=== PATIENT | male | born 1955 | race Caucasian/White ===

== ENCOUNTER → 2019-09-23 | Outpatient (CLI) | payer MEDICARE | LOC: NC 14:12 | PROVIDERS: ATTEND Family Medicine | DX: I25.10 Atherosclerotic heart disease of native coronary artery without angina pectoris (principal); Z51.81 Encounter for therapeutic drug level monitoring ==

== ENCOUNTER → 2020-07-23 | Outpatient (CLI) | payer MEDICARE | LOC: GT 16:57 | PROVIDERS: ATTEND Internal Medicine | DX: U07.1 COVID-19 (principal); R09.02 Hypoxemia; R71.8 Other abnormality of red blood cells; Z79.01 Long term (current) use of anticoagulants; Z79.899 Other long term (current) drug therapy ==

== ENCOUNTER 2020-07-24 11:01 | Emergency (ER) | payer MEDICAID, MEDICARE ==
--- NOTE | 2020-07-24 11:45 | RAD ---
EXAM DESCRIPTION: Chest x-ray,1 View CLINICAL HISTORY: 65 years Male, covid COMPARISON: None. TECHNIQUE: AP portable chest. FINDINGS: Heart size is prominent with normal pulmonary vascularity. Sternotomy wires are present. Surgical clips in the right axilla. Hiatal hernia behind the heart. Minimal hazy increased density in the periphery of the mid and lower lung zones on the right may indicate mild infiltrate of pneumonia. Follow-up recommended to ensure clearance. No pulmonary mass or worrisome nodule. No pneumothorax or pleural effusion. Bones are unremarkable. IMPRESSION: Mild peripheral right pulmonary infiltrate. Electronically signed by: Teodoro Boston MD 07/24/2020 11:44 AM [employer]
[2020-07-24] MEDS ORDERED: APIXABAN 5 MG TAB PO ONE (14:13)
--- NOTE | 2020-07-24 14:16 | ED.PDOC ---
History of Present Illness - General Chief Complaint: General Stated Complaint: "I'm here for a blood draw" Time Seen by Provider: 07/24/20 11:08 Source: patient Exam Limitations: no limitations - History of Present Illness Initial Comments: The patient is a 65-year-old male presents emergency room secondary to being found coronavirus positive at the intermediate. The patient is saturating between 95 and 98% on room air. No increased work of breathing. He did have a mild runny nose yesterday. No chest pain. No rash. No nausea vomiting or diarrhea. He did have blood work yesterday and it did show some mild elevation of inflammatory markers. He is already taking Coumadin. He is already on Levaquin. He is already on low-dose prednisone. He was diagnosed with coronavirus yesterday. Timing/Duration: unsure Severity: mild Improving Factors: nothing Worsening Factors: nothing Associated Symptoms: denies symptoms Allergies/Adverse Reactions: Allergies Cephalexin [From Keflex] Allergy (Verified 07/24/20 11:13) Chicken Allergy Allergy (Verified 07/24/20 11:34) Pork Allergy Allergy (Verified 07/24/20 11:34) Home Medications: Ambulatory Orders Acetaminophen [Tylenol] 500 mg PO DAILY 07/24/20 Apixaban [Eliquis] 5 mg PO BID #30 tab 07/24/20 Benztropine Mesylate 1 mg PO DAILY 07/24/20 Desvenlafaxine [Desvenlafaxine ER] 50 mg PO DAILY 07/24/20 Digoxin [Digox] 125 mcg PO DAILY 07/24/20 Donepezil HCl [Aricept] 5 mg PO DAILY 07/24/20 Famotidine 40 mg PO DAILY 07/24/20 Melatonin 10 mg PO DAILY 07/24/20 Olanzapine 15 mg PO DAILY 07/24/20 Pravastatin Sodium 40 mg PO DAILY 07/24/20 Prednisone 10 mg PO DAILY 07/24/20 Ropinirole Hydrochloride [Ropinirole HCl] 1 mg PO DAILY 07/24/20 Warfarin Sodium 3 mg PO DAILY 07/24/20 levoFLOXacin [Levaquin] 500 mg PO DAILY 07/24/20 Review of Systems - Review of Systems Constitutional: States: no symptoms reported EENTM: States: nose congestion Respiratory: States: no symptoms reported Cardiology: States: no symptoms reported Gastrointestinal/Abdominal: States: no symptoms reported Genitourinary: States: no symptoms reported Musculoskeletal: States: no symptoms reported Skin: States: no symptoms reported Neurological: States: no symptoms reported Endocrine: States: no symptoms reported Hematologic/Lymphatic: States: no symptoms reported All other Systems: No Change from Baseline Past Medical History (General) - Patient Medical History Hx Cardiac Disorders: Yes Hx Gastroesophageal Reflux: Yes - Vaccination History Hx Tetanus, Diphtheria Vaccination: Yes Hx Influenza Vaccination: Yes Hx Pneumococcal Vaccination: Yes - Social History Hx Tobacco Use: No Hx Alcohol Use: No Hx Substance Use: No Hx Substance Use Treatment: No Hx Depression: No - Activities of Daily Living Senior Care/Assisted Living (if applicable):: [facility] - Female History Patient is a Female of Child Bearing Age (10 -59 yrs old): No Family Medical History - Family History Mother Family History: Unknown Living Status: Unknown Physical Exam - Physical Exam General Appearance: Alert, Comfortable, No apparent distress Eye Exam: bilateral normal Ears, Nose, Throat: hearing grossly normal, normal pharynx, nasal congestion Neck: full range of motion, supple Respiratory: lungs clear, normal breath sounds, no respiratory distress, no accessory muscle use Cardiovascular/Chest: normal peripheral pulses, regular rate, rhythm - Regular rate, no edema, other Peripheral Pulses: radial,right: 2+, radial,left: 2+ Gastrointestinal/Abdominal: non tender, soft Rectal Exam: deferred Back Exam: no CVA tenderness, no vertebral tenderness Extremity: normal range of motion, non-tender, normal inspection, normal capillary refill Neurologic: guinea pig breeder II-XII nml as tested, alert, normal mood/affect Skin Exam: normal color Comments: Vital Signs - 24 hr 07/24/20 07/24/20 07/24/20 11:10 11:13 12:00 Temperature 98.5 F Pulse Rate [ 90 90 73 Left Radial] Respiratory 18 18 18 Rate Blood Pressure 110/75 124/75 [Left Arm] O2 Sat by Pulse 96 96 Oximetry Progress - Progress Progress: 07/24/20 14:16 Patient is a 65-year-old male presented emergency room from the intermediate secondary to being coronavirus positive. Repeat laboratory work here today is consistent with laboratory work from yesterday. There is a mild infiltrate in the right midlung likely due to coronavirus however the patient is not hypoxic and not in any respiratory distress. He has already been started on oral prednisone and Levaquin. Due to his subtherapeutic INR I am going to switch the patient to Eliquis for the next 2 weeks. He was given a 10 mg dose here today. He will need to be started on a routine dose tomorrow. He will be on 5 mg twice a day for that. Coumadin is too unpredictable to be used with the Levaquin anyway. The patient appears to largely be at his baseline at this point. Obviously the course of coronavirus can be unpredictable and elderly patients with other medical problems. If he is worsening in any significant way then he may need reevaluation. ER warnings are given. clyde torres [phone] - Results/Orders Results/Orders: Infiltrate. Chest x-ray shows mild right mid to lateral lung infiltrate laboratory Tests 07/24/20 07/24/20 07/24/20 11:30 11:30 11:30 WBC 4.5 L RBC 3.90 L Hgb 10.2 L Hct 30.9 L MCV 79.4 L MCH 26.2 L MCHC 33.0 RDW 21.5 H Plt Count 171 MPV 6.8 L Absolute Neuts (auto) 3.60 Absolute Lymphs (auto) 0.50 L Absolute Monos (auto) 0.40 Absolute Eos (auto) 0.00 Absolute Basos (auto) 0.00 Neutrophils % 80.1 H Lymphocytes % 11.0 L Monocytes % 8.5 Eosinophils % 0.1 L Basophils % 0.3 PT 11.4 H INR 1.15 PTT (SP) 29.1 Fibrinogen 418 H D-Dimer, Quantitative 649.0 H* Sodium 134 L Potassium 3.6 Chloride 99 L Carbon Dioxide 24 Anion Gap 14.6 BUN 20 H Creatinine 1.18 BUN/Creatinine Ratio 16.9 Random Glucose 102 Serum Osmolality 271.0 L Calcium 8.5 Ferritin Total Bilirubin 0.6 AST 16 ALT 12 Alkaline Phosphatase 76 Creatine Kinase 77 CK-MB (CK-2) 0.8 CK-MB (CK-2) % Not Reportable Troponin I < 0.02 B-Natriuretic Peptide 62.8 Serum Total Protein 7.9 Albumin 3.9 Globulin 4.0 H Albumin/Globulin Ratio 1.0 L Urine Color Urine Appearance Urine pH Ur Specific [place] Urine Protein Urine Glucose (UA) Urine Ketones Urine Blood Urine Nitrite Urine Bilirubin Urine Urobilinogen Ur Leukocyte Esterase Urine RBC Urine WBC Ur Epithelial Cells Amorphous Sediment Urine Bacteria 07/24/20 07/24/20 11:30 13:18 WBC RBC Hgb Hct MCV MCH MCHC RDW Plt Count MPV Absolute Neuts (auto) Absolute Lymphs (auto) Absolute Monos (auto) Absolute Eos (auto) Absolute Basos (auto) Neutrophils % Lymphocytes % Monocytes % Eosinophils % Basophils % PT INR PTT (SP) Fibrinogen D-Dimer, Quantitative Sodium Potassium Chloride Carbon Dioxide Anion Gap BUN Creatinine BUN/Creatinine Ratio Random Glucose Serum Osmolality Calcium Ferritin 28.0 Total Bilirubin AST ALT Alkaline Phosphatase Creatine Kinase CK-MB (CK-2) CK-MB (CK-2) % Troponin I B-Natriuretic Peptide Serum Total Protein Albumin Globulin Albumin/Globulin Ratio Urine Color Yellow Urine Appearance Clear Urine pH 6.0 Ur Specific [place] 1.015 Urine Protein Negative Urine Glucose (UA) Negative Urine Ketones Negative Urine Blood Negative Urine Nitrite Negative Urine Bilirubin Negative Urine Urobilinogen 0.2 Ur Leukocyte Esterase Negative Urine RBC 0 Urine WBC 1-3 Ur Epithelial Cells 0-1 Amorphous Sediment Trace Urine Bacteria Rare Departure - Departure Clinical Impression: Coronavirus infection Disposition: Discharge to SNF Condition: Fair Departure Forms: ED Discharge - Pt. Copy, Patient Portal Self Enrollment Diet: regular diet Activity: increase activity as tolerated Referrals: MARTHA BRINK [Primary Care Provider] - 1-2 Weeks Prescriptions: Apixaban [Eliquis] 5 mg PO BID #30 tab Home Medications: Ambulatory Orders Acetaminophen [Tylenol] 500 mg PO DAILY 07/24/20 Apixaban [Eliquis] 5 mg PO BID #30 tab 07/24/20 Benztropine Mesylate 1 mg PO DAILY 07/24/20 Desvenlafaxine [Desvenlafaxine ER] 50 mg PO DAILY 07/24/20 Digoxin [Digox] 125 mcg PO DAILY 07/24/20 Donepezil HCl [Aricept] 5 mg PO DAILY 07/24/20 Famotidine 40 mg PO DAILY 07/24/20 Melatonin 10 mg PO DAILY 07/24/20 Olanzapine 15 mg PO DAILY 07/24/20 Pravastatin Sodium 40 mg PO DAILY 07/24/20 Prednisone 10 mg PO DAILY 07/24/20 Ropinirole Hydrochloride [Ropinirole HCl] 1 mg PO DAILY 07/24/20 Warfarin Sodium 3 mg PO DAILY 07/24/20 levoFLOXacin [Levaquin] 500 mg PO DAILY 07/24/20 Additional Instructions: Patient is a 65-year-old male presented emergency room from the intermediate secondary to being coronavirus positive. Repeat laboratory work here today is consistent with laboratory work from yesterday. There is a mild infiltrate in the right midlung likely due to coronavirus however the patient is not hypoxic and not in any respiratory distress. He has already been started on oral prednisone and Levaquin. Due to his subtherapeutic INR I am going to switch the patient to Eliquis for the next 2 weeks. He was given a 10 mg dose here today. He will need to be started on a routine dose tomorrow. He will be on 5 mg twice a day for that. Coumadin is too unpredictable to be used with the Levaquin anyway. It will be discontinued until he completes the course of Levaquin. The patient appears to largely be at his baseline at this point. Obviously the course of coronavirus can be unpredictable and elderly patients with other medical problems. If he is worsening in any significant way then he may need reevaluation. ER warnings are given.
[2020-07-24 14:45] VITALS: TEMP 97.8; O2SAT 97
[2020-07-24 14:50] VITALS: BP 138/88
[2020-07-27] MEDS ORDERED: ACETAMINOPHEN IV 1000MG 100 ML ONE (09:39)
[2020-07-27] MEDS ORDERED: DEXAMETHASONE INJ 10 MG/ML VIAL ONE (12:57)
== END 2020-07-24 14:47 ==
LOC: ER 11:01
DX: U07.1 COVID-19 (principal); K21.9 Gastro-esophageal reflux disease without esophagitis; I51.9 Heart disease, unspecified; Z79.899 Other long term (current) drug therapy; Z79.01 Long term (current) use of anticoagulants; Z88.1 Allergy status to other antibiotic agents

== ENCOUNTER 2020-07-27 09:03 | Inpatient (IN) | payer MEDICARE ==
[2020-07-27] MEDS ORDERED: SODIUM CHLORIDE 0.9% 1000ML 1,000 ML IVS ONE ×2 (09:22→10:18)
--- NOTE | 2020-07-27 09:26 | ED.PDOC ---
History of Present Illness - General Chief Complaint: Respiratory Problem Stated Complaint: resp distress, rapid hr Time Seen by Provider: 07/27/20 09:05 Source: RN notes reviewed, Vital Signs reviewed, EMS notes reviewed, group home records, old records Exam Limitations: other - dementia - History of Present Illness Initial Comments: 65 yo male comes in from group home with elevated HR, He was recently dx with covid 4 days ago. reported sob, and hypoxia. does not wear oxygen at home in group home. Allergies/Adverse Reactions: Allergies Cephalexin [From Keflex] Allergy (Verified 07/24/20 11:13) Chicken Allergy Allergy (Verified 07/24/20 11:34) Pork Allergy Allergy (Verified 07/24/20 11:34) Home Medications: Ambulatory Orders Acetaminophen [Tylenol] 500 mg PO Q4H PRN 07/24/20 Benztropine Mesylate 1 mg PO BID 07/24/20 Desvenlafaxine [Desvenlafaxine ER] 50 mg PO DAILY 07/24/20 Digoxin [Digox] 125 mcg PO DAILY 07/24/20 Donepezil HCl [Aricept] 5 mg PO DAILY 07/24/20 Famotidine 40 mg PO BID 07/24/20 Melatonin 10 mg PO BEDTIME 07/24/20 Olanzapine 15 mg PO BEDTIME 07/24/20 Pravastatin Sodium 40 mg PO BEDTIME 07/24/20 Prednisone 10 mg PO DAILY 07/24/20 Ropinirole Hydrochloride [Ropinirole HCl] 1 mg PO BID 07/24/20 levoFLOXacin [Levaquin] 500 mg PO DAILY 07/24/20 Apixaban [Eliquis] 5 mg PO BID 07/27/20 Review of Systems - Review of Systems Unable to Obtain Due To: dementia Past Medical History (General) - Patient Medical History Hx Dementia: Yes Hx of COPD: No - prosethetic heart valve? Hx Cardiac Disorders: Yes Hx Pacemaker: No Hx Gastroesophageal Reflux: Yes Hx Renal Disease: No Hx Cancer: No Hx of HIV: No Hx Hepatitis B: No Hx Hepatitis C: No Hx MRSA: No Surgical History: cholecystectomy - Vaccination History Hx Tetanus, Diphtheria Vaccination: Yes Hx Influenza Vaccination: Yes Hx Pneumococcal Vaccination: Yes - Social History Hx Tobacco Use: No Hx Alcohol Use: No Hx Substance Use: No Hx Substance Use Treatment: No Hx Depression: No Family Medical History - Family History Mother Family History: Unknown Living Status: Unknown Physical Exam - Physical Exam General Appearance: Alert, Anxious, Unkempt, Well Developed Eyes, Ears, Nose, Throat Exam: PERRL/EOMI, normal ENT inspection Neck: non-tender, full range of motion, supple, normal inspection Respiratory: chest non-tender, lungs clear, normal breath sounds, no respiratory distress, no accessory muscle use Cardiovascular/Chest: normal peripheral pulses, no edema, no gallop, no JVD, no murmur, bradycardia Peripheral Pulses: radial,right: 2+, radial,left: 2+ Gastrointestinal/Abdominal: normal bowel sounds, non tender, soft Rectal Exam: deferred Extremity: normal range of motion, non-tender, normal inspection, no pedal edema, no calf tenderness, normal capillary refill Neurologic: alert, other - baseline mental status, confused, oriented to self Skin Exam: normal color, warm/dry Progress - Progress Progress: 07/27/20 12:16 After 2 L NS bolus, HR decrease to 97, Saturating 94% on RA. patient got dexmaethasone, IV tylenol, 2 L ns bolus, remdisivir, levaquin. 07/27/20 13:07 HR 89, 98% on 2 L. Pending admission. The data reviewed when caring for this patient included: nurse notes, prior records, etc. The history and assessments from nurses notes were reviewed and considered, and the patient's home medication list was also reviewed and considered. My assessment and the results of testing completed here in the ED were discussed with the patient. All questions were answered. VSS patient admitted to the floor in stable condition. Daysi Campo DO #[id number] 07/27/20 13:09 - Results/Orders Results/Orders: 07/27/20 09:17 Isolation:Airborne ONCE 07/27/20 09:18 URINALYSIS Stat 07/27/20 09:30 EKG STAT Pulse Ox, Continuous Monitoring STAT 07/27/20 09:40 BLOOD CULTURE Stat 07/27/20 10:00 Remdesivir 200 mg Sodium Chloride 0.9% 250Ml [NS 250ml] 250 ml IVPB ONCE 07/27/20 12:17 ED Intent to Admit Routine 07/28/20 09:30 Pulse Ox, Continuous Monitoring STAT 07/29/20 09:30 Pulse Ox, Continuous Monitoring STAT Laboratory Results WBC 3.6 K/mm3 (4.8-10.8) L 07/27/20 09:35 RBC 3.80 M/mm3 (4.70-6.10) L 07/27/20 09:35 Hgb 10.0 gm/dL (14.0-18.0) L 07/27/20 09:35 Hct 29.8 % (42.0-52.0) L 07/27/20 09:35 MCV 78.4 fl (80.0-94.0) L 07/27/20 09:35 MCH 26.3 pg (27.0-31.0) L 07/27/20 09:35 MCHC 33.5 g/dL (33.0-37.0) 07/27/20 09:35 RDW 21.9 % (11.5-14.5) H 07/27/20 09:35 Plt Count 185 K/mm3 (130-400) 07/27/20 09:35 MPV 7.5 fl (7.40-10.4) 07/27/20 09:35 Absolute Neuts (auto) 2.90 K/uL (1.8-6.8) 07/27/20 09:35 Absolute Lymphs (auto) 0.30 K/uL (1.0-3.4) L 07/27/20 09:35 Absolute Monos (auto) 0.30 K/uL (0.2-0.8) 07/27/20 09:35 Absolute Eos (auto) 0.00 K/uL (0.0-0.4) 07/27/20 09:35 Absolute Basos (auto) 0.00 K/uL (0.0-0.1) 07/27/20 09:35 Neutrophils % 81.5 % (42.0-78.0) H 07/27/20 09:35 Lymphocytes % 8.7 % (20.0-50.0) L 07/27/20 09:35 Monocytes % 9.1 % (2.0-9.0) H 07/27/20 09:35 Eosinophils % 0.0 % (1.0-5.0) L 07/27/20 09:35 Basophils % 0.7 % (0.0-2.0) 07/27/20 09:35 PT 14.0 SECONDS (9.0-10.9) H 07/27/20 09:35 INR 1.41 (0.9-1.15) H 07/27/20 09:35 PTT (SP) 32.3 SECONDS (21.8-31.6) H 07/27/20 09:35 D-Dimer, Quantitative 1200.0 ng/ml (131-400) H* 07/27/20 09:35 Sodium 136 mmol/L (135-145) 07/27/20 09:35 Potassium 3.2 mmol/L (3.6-5.0) L 07/27/20 09:35 Chloride 103 mmol/L (101-111) 07/27/20 09:35 Carbon Dioxide 21 mmol/L (21-31) 07/27/20 09:35 Anion Gap 15.2 (12-18) 07/27/20 09:35 BUN 25 mg/dL (7-18) H 07/27/20 09:35 Creatinine 1.33 mg/dL (0.6-1.3) H 07/27/20 09:35 BUN/Creatinine Ratio 18.8 (10-20) 07/27/20 09:35 Random Glucose 83 mg/dL (70-105) 07/27/20 09:35 Serum Osmolality 275.5 mOsm/L (275-295) 07/27/20 09:35 Calcium 8.0 mg/dL (8.4-10.2) L 07/27/20 09:35 Magnesium 1.7 mg/dL (1.8-2.5) L 07/27/20 09:35 Total Bilirubin 0.7 mg/dL (0.2-1.0) 07/27/20 09:35 AST 21 IU/L (10-42) 07/27/20 09:35 ALT 11 IU/L (10-60) 07/27/20 09:35 Alkaline Phosphatase 66 IU/L (42-121) 07/27/20 09:35 LD Total 252 IU/L (91-180) H 07/27/20 09:35 Creatine Kinase 37 IU/L (38-174) L D 07/27/20 09:35 Troponin I 0.02 ng/mL (0.01-0.05) 07/27/20 09:35 C-Reactive Protein 3.7 mg/dL (0-1.0) H D 07/27/20 09:35 B-Natriuretic Peptide 77.8 pg/ml (0-100) 07/27/20 09:35 Serum Total Protein 7.2 gm/dL (6.4-8.2) 07/27/20 09:35 Albumin 3.4 g/dl (3.2-5.5) 07/27/20 09:35 Globulin 3.8 gm/dL (2.3-3.5) H 07/27/20 09:35 Albumin/Globulin Ratio 0.9 (1.1-1.9) L 07/27/20 09:35 TSH 1.52 uIU/mL (0.34-5.60) 07/27/20 09:35 - EKG/XRAY/CT EKG: Sinus, Tachy, RBBB XRAY: chest - lorenzo infiltrates vs atelectasis CT: Bilateral pulmonary infiltrates, no PE Departure - Departure Clinical Impression: COVID-19, Hypoxia Sepsis Qualifiers: Sepsis type: sepsis due to unspecified organism Sepsis acute organ dysfunction status: without acute organ dysfunction Qualified Code(s): A41.9 - Sepsis, u nspecified organism Disposition: Admit Patient Departure Forms: ED Discharge - Pt. Copy, Patient Portal Self Enrollment Referrals: MARTHA BRINK [Primary Care Provider] - 1-2 Weeks Home Medications: Ambulatory Orders Acetaminophen [Tylenol] 500 mg PO Q4H PRN 07/24/20 Benztropine Mesylate 1 mg PO BID 07/24/20 Desvenlafaxine [Desvenlafaxine ER] 50 mg PO DAILY 07/24/20 Digoxin [Digox] 125 mcg PO DAILY 07/24/20 Donepezil HCl [Aricept] 5 mg PO DAILY 07/24/20 Famotidine 40 mg PO BID 07/24/20 Melatonin 10 mg PO BEDTIME 07/24/20 Olanzapine 15 mg PO BEDTIME 07/24/20 Pravastatin Sodium 40 mg PO BEDTIME 07/24/20 Prednisone 10 mg PO DAILY 07/24/20 Ropinirole Hydrochloride [Ropinirole HCl] 1 mg PO BID 07/24/20 levoFLOXacin [Levaquin] 500 mg PO DAILY 07/24/20 Apixaban [Eliquis] 5 mg PO BID 07/27/20 Decision To Admit - Decistion To Admit Decision to Admit Reason: Medical Nature Decision to Admit Date: 07/27/20 Decision to Admit Time: 11:00
[2020-07-27] MEDS ORDERED: ACETAMINOPHEN IV 1000MG 1,000 MG in PREMIX BOTTLE 1 BOTTLE IVPB ONE (09:36)
[2020-07-27] MEDS ORDERED: DEXAMETHASONE INJ 10 MG/ML VIAL IV ONE (09:46)
[2020-07-27] MEDS ORDERED: REMDESIVIR 200 MG in SODIUM CHLORIDE 0.9% 250ML 250 ML IVPB SCH ×2 (10:00→15:00)
--- NOTE | 2020-07-27 10:18 | RAD ---
EXAM DESCRIPTION: Chest,1 View CLINICAL HISTORY: covid COMPARISON: July 24, 2020 IMPRESSION: Single AP portable upright view of the chest shows mild enlargement of the cardiac silhouette without pulmonary vascular congestion. Postsurgical changes from sternotomy are seen. Lungs are hypoaerated. Interstitial thickening in the lower lobes bilaterally could represent atelectasis versus interstitial pneumonia. No pleural effusion or pneumothorax is. Increased density in the retrocardiac region suggests hiatal hernia similar to previous. Electronically signed by: González Frederick MD 07/27/2020 10:16 AM [facility]
[2020-07-27] MEDS ORDERED: levoFLOXacin 750MG IV 750 MG in PREMIX BAG 1 BAG IVPB ONE (10:19)
--- NOTE | 2020-07-27 12:03 | CT ---
EXAM DESCRIPTION: CTA Chest CLINICAL HISTORY: 65 years, Male, covid COMPARISON: Chest x-ray July 27, 2020, CT abdomen and pelvis February 19, 2013 TECHNIQUE: CT pulmonary angiography is performed with thin-section multi detector technique during rapid bolus administration of Isovue 300 IV contrast media. Multiplanar reformatted images are reviewed along with source images for CT angiography of the thorax. FINDINGS: Suboptimal enhancement of pulmonary arteries with no evidence of the large central pulmonary embolus. No definite emboli in the more peripheral arterial branches. Normal enhancement of cardiac chambers. Prosthetic aortic valve. Extensive coronary calcification. Early enhancement of the aorta is negative for aneurysm or dissection. Large hiatal hernia behind the heart. This was seen on the previous CT of the abdomen February 19, 2013 which included the lower chest. Lung window images reveal patchy infiltrates with groundglass density and partial volume loss in the lower lobes bilaterally as well as in the posterior segments of the upper lobes. Lesser peripheral infiltrate in the left upper lobe apical posterior segment. Sternotomy wires are present.. No worrisome mass or nodule. In the upper abdomen, bilateral renal cysts with right renal scarring. Otherwise upper abdominal viscera are unremarkable. No chest wall mass or rib fracture. No axillary or lower cervical adenopathy. Coronal and sagittal reformatted images and oblique MIP images confirm normal pulmonary arterial enhancement. IMPRESSION: Bilateral pulmonary infiltrates consistent with pneumonia. Large hiatal hernia. Negative for evidence of pulmonary embolic disease. This exam was performed according to our departmental dose-optimization program, which includes automated exposure control, adjustment of the mA and/or kV according to patient size and/or use of iterative reconstruction technique. Total DLP equals 939.34 mGycm. Electronically signed by: Teodoro Boston MD 07/27/2020 12:01 PM [facility]
--- NOTE | 2020-07-27 13:39 | HP ---
SUPERVISING PHYSICIAN: Jose Shane MD CHIEF COMPLAINT: Tachycardia, respiratory distress, COVID infection. HISTORY OF PRESENT ILLNESS: Mr. Raines is a 65-year-old male patient who presents to the Emergency Room from [facility] for an elevated heart rate. He was diagnosed recently with COVID 4 days previously in the ER. It was reported he was having some shortness of breath and hypoxia. He does not wear oxygen at the prison. He does have a history of severe dementia, therefore, his history is limited to review of prison records and ER charts as the patient is a very poor historian. On initial presentation to the Emergency Room, heart rate was 140, febrile with temperature of 100.3, blood pressure 92/59, oxygen saturation 96% on [address] of the chest per radiologic interpretation was negative for an pulmonary embolus process. There was noted of a large hiatal hernia and bilateral pulmonary infiltrates consistent with pneumonia. His labs initially showed a white count of 3,600 with a left shift. Coagulation studies showed D-dimer elevated at 1200. Chemistries showed a mildly low potassium of 3.2, magnesium initially 1.7, troponin 0.02. C-reactive protein 3.7, TSH 1.52. He was given 2 liters of fluids in the Emergency Room which did result in his heart rate improving along with some Tylenol. Once he was afebrile, his heart rate was noted to be in the 80s with blood pressure 117/75. He stayed in the ER for a short period of time given that he had tested positive for COVID, but was found to be fairly stable and was actually showing saturations of 100% on room air after initial treatment course. He has been treated with Levaquin and Eliquis since his admission in the ER 4 days previously. Given his COVID status and positive for COVID pneumonitis and developing pneumonia having been on treatment course, he is going to be placed in observation initially for further evaluation. He was admitted in stable condition. PAST MEDICAL HISTORY: Limited due to the patient being a poor historian. 1. Dementia. 2. Hypertension. 3. Cardiovascular disease. PAST SURGICAL HISTORY: 1. Cholecystectomy. 2. Hernia repair. HOME MEDICATIONS: Awaiting an updated list of current medications, but he was on from previous Emergency Room visit 4 days earlier: 1. Levaquin. 2. Eliquis. 3. Prednisone. ALLERGIES: CEPHALEXIN, CHICKEN AND PORK. FAMILY HISTORY: Unknown. SOCIAL HISTORY: The patient is a resident of [facility]. He denies any tobacco or alcohol usage. REVIEW OF SYSTEMS: Limited due to the patient's dementia. PHYSICAL EXAMINATION: VITAL SIGNS: Initially in the Emergency Room, he was febrile with temperature 100.3, pulse 144, blood pressure 92/59, respirations 24, saturation 96% on 2 liters nasal cannula. GENERAL: The patient looks older than his stated age. He is very unkept. HEENT: Tympanic membranes clear bilaterally. Oropharynx is pink, moist without any lesions. Dentition was in poor repair. NECK: Supple, nontender with full range of motion. RESPIRATORY: Lung sounds are clear to auscultation, just diminished bilaterally towards the bases. I do not hear any rhonchi, wheezes or rales. CARDIOVASCULAR: Regular rate and rhythm, initially tachycardic. After fluids showing sinus rhythm with no obvious murmurs, gallops, or rubs. ABDOMEN: Soft, nontender. Positive bowel sounds. RECTAL: Deferred. BACK: No CVA or vertebral tenderness. EXTREMITIES: There is no cyanosis, clubbing or edema. NEUROLOGIC: He is alert, confused, but appears to be at his baseline mental status as reported by medical staff from prison. He is oriented to himself, but he think she lives in [place], [place]. SKIN: Warm, pink and dry. LABORATORY: White count 3,600, hemoglobin 10, hematocrit 29.8. RBC indices show a microcytic/hypochromic presentation with a platelet count of 185,000. Differential does show a left shift. Coagulation studies show an elevated D- dimer at 1200. His D-dimer on 07/24/20 was 649. PT 14, PTT 32.3, however, he is on Eliquis. Chemistries show potassium 3.2, otherwise electrolytes within normal limits. Creatinine 1.3 compared to 1.8 on 07/24/20. Calcium 8.0, magnesium 1.7. Troponin less than 0.02. C-reactive protein 3.7. BNP normal at 77. TSH normal at 1.52. Urinalysis was without any significant findings. MICROBIOLOGY: Blood cultures pending. Blood cultures drawn on 07/24/20 are negative after 3 days. RADIOLOGY: CTA of the chest per radiologic interpretation shows bilateral pulmonary infiltrates consistent with pneumonia, large hiatal hernia. There is no evidence of pulmonary embolic disease. ASSESSMENT: 1. COVID pneumonia, failing to adequately respond to current treatment course with prednisone, Eliquis and Levaquin. 2. Microcytic/hypochromic anemia, likely chronic. 3. Acute renal insufficiency, likely prerenal azotemia due to some dehydration. 4. Moderate dehydration, responding to fluids. 5. Mild electrolyte imbalance to include hypomagnesemia and hypokalemia. 6. Advanced dementia. 7. History of hypertension. PLAN: Mr. Raines is going to be placed in observation initially for further evaluation and treatment of his COVID pneumonia. Before he got fluids in the Emergency Room, he was tachycardic, but he responded to fluids as well as he was already showing good saturations. However, compared to 4 days previously, his inflammatory markers are showing elevation. We will start him on Remdesivir and Decadron. We will continue with Levaquin, but we will up the dose to 750 mg. We will anticipate his length of stay to be at least 1 to 2 days and reevaluate tomorrow with repeat laboratory studies. We need to get old records from the prison to clarify why he is on digoxin. We will anticipate hopefully discharging in the next 24 to 48 hours. Until then, we will continue to monitor and treat as necessary. #[id number] MTDD
[2020-07-27] MEDS ORDERED: SODIUM CHLORIDE 0.9% (FLUSH) 10 ML SYG IV PRN (17:38)
[2020-07-27] MEDS ORDERED: ONDANSETRON INJ 4 MG/2 ML VIAL IV PRN (17:38)
[2020-07-27] MEDS ORDERED: ACETAMINOPHEN 325 MG TAB PO PRN (17:38)
[2020-07-27] MEDS ORDERED: IV SET AND CAP CHANGE INJ INJ SCH (18:00)
[2020-07-27] MEDS ORDERED: PRAVASTATIN SODIUM 20 MG TAB ONE (19:02)
[2020-07-27] MEDS ORDERED: MELATONIN 3 MG TAB ONE (19:03)
[2020-07-27] MEDS: APIXABAN 5 MG TAB PO SCH (20:37)
[2020-07-27] MEDS: BENZTROPINE MESYLATE TAB 1 MG TAB PO SCH (20:37)
[2020-07-27] MEDS ORDERED: OLANZAPINE 15 MG PO SCH (21:00)
[2020-07-27] MEDS ORDERED: NON-FORMULARY MEDICATION 1 EA MIS (Pravastatin Sodium [Pravastatin Sodium] 40 MG) PO SCH (21:00)
[2020-07-27] MEDS ORDERED: NON-FORMULARY MEDICATION 1 EA MIS (Melatonin [Melatonin] 10 MG) PO SCH (21:00)
[2020-07-28] MEDS ORDERED: PANTOPRAZOLE SODIUM IV 40 MG VIAL IV SCH (06:30)
[2020-07-28] MEDS ORDERED: DEXAMETHASONE INJ 10 MG/ML VIAL ONE (08:42)
[2020-07-28] MEDS ORDERED: BENZTROPINE MESYLATE TAB 1 MG TAB ONE (08:42)
[2020-07-28] MEDS ORDERED: BIFIDOBACTERIUM INFANTIS 4 MG CAP ONE (08:42)
[2020-07-28] MEDS ORDERED: DONEPEZIL HCL 5 MG TAB ONE (08:42)
[2020-07-28] MEDS ORDERED: SODIUM CHLORIDE 0.9% 250ML 250 ML ONE (08:43)
[2020-07-28] MEDS ORDERED: REMDESIVIR 100 MG ONE (08:43)
[2020-07-28] MEDS ORDERED: DIGOXIN 0.125 MG TAB ONE (08:43)
[2020-07-28] MEDS ORDERED: APIXABAN 5 MG TAB PO ONE (08:43)
[2020-07-28] MEDS: BENZTROPINE MESYLATE TAB 1 MG TAB PO SCH ×2 (09:30→20:11)
[2020-07-28] MEDS: BIFIDOBACTERIUM INFANTIS 4 MG CAP PO SCH (09:30)
[2020-07-28] MEDS: DIGOXIN 0.125 MG TAB PO SCH (09:30)
[2020-07-28] MEDS: APIXABAN 5 MG TAB PO SCH ×2 (09:30→20:11)
[2020-07-28] MEDS: DONEPEZIL HCL 5 MG TAB PO SCH (09:30)
[2020-07-28] MEDS: DEXAMETHASONE INJ 10 MG/ML VIAL IV SCH (09:31)
[2020-07-28] MEDS: levoFLOXacin 750MG IV 750 MG in PREMIX BAG 1 BAG IVPB SCH (09:31)
[2020-07-28] MEDS ORDERED: ALBUTEROL INHALER 64 PUFF/8GM INH PRN (12:44)
--- NOTE | 2020-07-28 13:31 | PN ---
SUPERVISING PHYSICIAN: Jose Shane MD DATE: 07/28/20 SUBJECTIVE: The patient is doing fairly well. He is not really having a lot of shortness of breath at this point. He has been afebrile since admission. T-max on admission was 100.3. No nausea or vomiting report, no chest pain. OBJECTIVE: VITAL SIGNS: Temperature 98, pulse 89, blood pressure 109/73, respirations 18, saturation 92% on 2 liters nasal cannula. GENERAL: The patient is resting comfortably. CHEST: Lungs are fairly clear, just diminished a little bit towards the bases bilaterally. HEART: Regular rate and rhythm. ABDOMEN: Obese, but soft and nontender. Positive bowel sounds. EXTREMITIES: No edema. NEUROLOGIC: He is alert to himself. He realizes he is in the hospital, but is not sure where. He seems to be a little bit more alert and more with it today. According to his records, he seems to be at his baseline mental status. LABORATORY: White count 2,500, hemoglobin down to 8.3, hematocrit 24.5, platelet count 150,000. Differential without a left shift. Coagulation studies showed D-dimer down from 1200 to 401. PTT 39.7. Chemistries show normal electrolytes with BUN 25, creatinine 0.97, calcium 7.6 corrected to 8.1 for albumin of 2.7. Liver functions within normal limits. C-reactive protein went up today to 8.4. TSH normal at 1.52. MICROBIOLOGY: Blood cultures are negative at 24 hours. RADIOLOGY: No additional radiographic studies today. ASSESSMENT: 1. COVID pneumonia, failing to adequately respond to current treatment course with prednisone, Eliquis and Levaquin. 2. Microcytic/hypochromic anemia, likely chronic. 3. Acute renal insufficiency, likely prerenal azotemia due to some dehydration. 4. Moderate dehydration, responding to fluids. 5. Mild electrolyte imbalance to include hypomagnesemia and hypokalemia. 6. Advanced dementia. 7. History of hypertension. PLAN: We will continue plan of care at this point with Remdesivir, Decadron and Levaquin. I am still not sure why he is on digoxin. He remains on Eliquis. I anticipate another at least 24 hours, possibly 48 hours before we discharge him. Until then, we will continue to work to transition him to outpatient management. #[id number] MTDD
[2020-07-28] MEDS: ALBUTEROL INHALER 64 PUFF/8GM INH SCH ×2 (16:21→20:37)
[2020-07-28] MEDS ORDERED: REMDESIVIR 100 MG in SODIUM CHLORIDE 0.9% 250ML 250 ML IVPB SCH (17:00)
[2020-07-28] MEDS ORDERED: PRAVASTATIN SODIUM 20 MG TAB ONE (19:26)
[2020-07-28] MEDS ORDERED: MELATONIN 3 MG TAB ONE (19:26)
[2020-07-28] MEDS ORDERED: OLANZapine ODT 5 MG TAB ONE (19:26)
[2020-07-28] MEDS ORDERED: PANTOPRAZOLE SODIUM TAB 40 MG PO ONE (19:26)
[2020-07-28] MEDS ORDERED: OLANZapine ODT 5 MG TAB PO SCH (21:00)
[2020-07-28] MEDS ORDERED: MELATONIN 3 MG TAB PO SCH (21:00)
[2020-07-28] MEDS ORDERED: PRAVASTATIN SODIUM 20 MG TAB PO SCH (21:00)
[2020-07-29] MEDS ORDERED: PANTOPRAZOLE SODIUM TAB 40 MG PO SCH (06:30)
--- NOTE | 2020-07-29 07:09 | RAD ---
EXAM: XR Chest, 1 View CLINICAL HISTORY: covid PNA TECHNIQUE: Frontal view of the chest. COMPARISON: 07/27/2020 FINDINGS: Lungs: There is stable interstitial lung disease in both bases right greater than left. Stable patchy airspace disease right lung base. Pleural space: No pneumothorax or pleural effusion. Heart: Stable cardiac shadow. Mediastinum: No abnormality noted. Bones/joints: No osseous destruction or sclerosis noted. IMPRESSION: Stable covid pneumonia. Electronically signed by: Shivani James MD 07/29/2020 7:08 AM [employer]
[2020-07-29] MEDS: ALBUTEROL INHALER 64 PUFF/8GM INH SCH ×2 (08:00→12:53)
[2020-07-29] MEDS ORDERED: POTASSIUM CHLORIDE 20 MEQ TAB PO ONE (08:26)
[2020-07-29 08:31] VITALS: TEMP 97.9; O2SAT 95
[2020-07-29] MEDS: DIGOXIN 0.125 MG TAB PO SCH (08:35)
[2020-07-29] MEDS ORDERED: POTASSIUM CHLORIDE 20 MEQ TAB ONE (08:35)
[2020-07-29] MEDS: DONEPEZIL HCL 5 MG TAB PO SCH (08:37)
[2020-07-29] MEDS: BENZTROPINE MESYLATE TAB 1 MG TAB PO SCH (08:37)
[2020-07-29] MEDS: DEXAMETHASONE INJ 10 MG/ML VIAL IV SCH (08:37)
[2020-07-29] MEDS: APIXABAN 5 MG TAB PO SCH (08:37)
[2020-07-29] MEDS: BIFIDOBACTERIUM INFANTIS 4 MG CAP PO SCH (08:37)
[2020-07-29] MEDS: levoFLOXacin 750MG IV 750 MG in PREMIX BAG 1 BAG IVPB SCH (08:38)
[2020-07-29 12:53] VITALS: BP 95/52
--- NOTE | 2020-07-29 15:00 | DS ---
SUPERVISING PHYSICIAN: Jose Shane MD DISCHARGE DIAGNOSIS: 1. COVID pneumonia, failing to adequately respond to current treatment course with prednisone, Eliquis and Levaquin. 2. Microcytic/hypochromic anemia, likely chronic. 3. Acute renal insufficiency. 4. Moderate dehydration, improved. 5. Mild electrolyte imbalance, improved. 6. Advanced dementia. 7. History of hypertension. HISTORY OF PRESENT ILLNESS: This is a 65-year-old male patient who presents to the Emergency Room with COVID approximately 4 days prior to his admission to the Emergency Room. He was reportedly having some shortness of breath and hypoxia. He does not wear oxygen at the [facility]. He does have a history of severe dementia. At this time on presentation to the Emergency Room, his heart rate was 140 and febrile with a temperature of 100.3, blood pressure 92/59, O2 saturation 96% on [address] of the chest was negative for an pulmonary embolism process. He had a large hiatal hernia and bilateral pulmonary infiltrates consistent with pneumonia. His labs initially showed a white count of 3,600 with a left shift. Coagulation studies showed D-dimer elevated at 1200. Chemistries showed a mildly low potassium of 3.2, magnesium 1.7, troponin 0.02. C-reactive protein 3.7, TSH 1.52. He was given 2 liters of fluids in the Emergency Room and his heart rate improved. He was also given Tylenol. Once he received fluids and became afebrile, his heart rate was in the 80s. He tested positive for COVID-19 again and was found to be fairly stable. Due to his failed outpatient treatment, he was admitted to the hospital for aggressive treatment of COVID-19 pneumonitis. HOSPITAL COURSE: The patient initially was placed in observation for evaluation of his COVID. He was started on the routine COVID lab and medications including Remdesivir, azithromycin and Decadron. He was given Levaquin due to his cephalosporin allergy. His progress improved. He was weaned off of his oxygen. Today, he will be discharged to the [facility] in stable condition. Due to the unavailability of COVID beds at [facility], the patient was transferred to [facility]. LABORATORY: WBCs remained stable at 3,400 with hemoglobin 8.3, hematocrit 25. D-dimer initially [id number] and today it is 356. Electrolytes are basically within normal limits with his potassium slightly low at 3.3 and he did receive potassium supplementation. His LD is 196, creatinine kinase 37. CRP 5.7 and was as high as 8.4. Urinalysis is unremarkable. MICROBIOLOGY: Preliminary blood culture showed no growth after 48 hours. RADIOLOGY: Chest x-ray shows stable COVID pneumonia. DISCHARGE PLAN: The patient will be discharged to [facility] in stable condition. He is to resume his previous diet and activity. In addition to his routine medications, he is to be on azithromycin, Align, dexamethasone, Levaquin and albuterol inhalers. He should have a followup appointment with Dr. Cavanaugh in the next one to two weeks. He is to return to the hospital or followup with Dr. Cavanaugh for any problems or complications. DISCHARGE MEDICATIONS: 1. Acetaminophen. 2. Ropinirole. 3. Prednisone. 4. Pravastatin. 5. Benztropine. 6. Olanzapine. 7. Melatonin. 8. Effexor. 9. Levaquin. 10. Pepcid. 11. Digoxin. 12. Donepezil. 13. Eliquis. 14. Align. 15. Dexamethasone. 16. Levaquin. 17. Albuterol. 18. Azithromycin. #[id number] [facility]
== END 2020-07-29 14:05 | DRG 177 ==
LOC: ER 09:03 → MS 13:38 → OBSVTOIN 13:38
PROVIDERS: ADMIT Nurse Practitioner Family; ATTEND Nurse Practitioner Acute Care
PROC: B32T1ZZ Computerized Tomography (CT Scan) of Left Pulmonary Artery using Low Osmolar Contrast (ICD-10-PCS; principal; 2020-07-27)
PROC: B32S1ZZ Computerized Tomography (CT Scan) of Right Pulmonary Artery using Low Osmolar Contrast (ICD-10-PCS; 2020-07-27)
PROC: XW033E5 Introduction of Remdesivir Anti-infective into Peripheral Vein, Percutaneous Approach, New Technology Group 5 (ICD-10-PCS; 2020-07-28)
DX: U07.1 COVID-19 (principal); J12.89 Other viral pneumonia; R09.02 Hypoxemia; E83.42 Hypomagnesemia; E87.6 Hypokalemia; E86.0 Dehydration; D50.9 Iron deficiency anemia, unspecified; N28.9 Disorder of kidney and ureter, unspecified; F03.90 Unspecified dementia, unspecified severity, without behavioral disturbance, psychotic disturbance, mood disturbance, and anxiety; I11.9 Hypertensive heart disease without heart failure; Z88.1 Allergy status to other antibiotic agents; Z79.01 Long term (current) use of anticoagulants; Z79.52 Long term (current) use of systemic steroids; Z79.899 Other long term (current) drug therapy

== ENCOUNTER → 2020-08-10 | Outpatient (CLI) | payer MEDICARE | LOC: GT 22:26 | PROVIDERS: ATTEND Internal Medicine | DX: F03.90 Unspecified dementia, unspecified severity, without behavioral disturbance, psychotic disturbance, mood disturbance, and anxiety (principal); Z79.899 Other long term (current) drug therapy ==

== ENCOUNTER → 2020-09-02 | Outpatient (CLI) | payer MEDICARE | LOC: GT 06:32 | PROVIDERS: ATTEND Internal Medicine | DX: Z51.81 Encounter for therapeutic drug level monitoring (principal); I10 Essential (primary) hypertension; R30.0 Dysuria; E55.9 Vitamin D deficiency, unspecified ==

== ENCOUNTER → 2020-09-07 | Outpatient (CLI) | payer MEDICARE ==
--- NOTE | 2020-09-07 18:02 | RAD ---
EXAM DESCRIPTION: Pelvis CLINICAL HISTORY: PAIN IN RIGHT HIP COMPARISON: None. TECHNIQUE: AP pelvis FINDINGS: Surgical clips are observed inferior to the right hip. The pelvis and hips are unremarkable. No fracture is detected. Mild degenerative changes are observed in the pubic symphysis. IMPRESSION: Unremarkable pelvis. Electronically signed by: Gabe Robles MD 09/07/2020 6:01 PM [facility]
--- NOTE | 2020-09-07 18:03 | RAD ---
EXAM DESCRIPTION: Femur,Right CLINICAL HISTORY: PAIN IN RIGHT HIP COMPARISON: None. TECHNIQUE: AP and lateral right FINDINGS: The femur is intact. No fracturing is detected. No joint effusion is evident. Surgical clips are observed beneath the right hip. IMPRESSION: Unremarkable right femur. Electronically signed by: Gabe Robles MD 09/07/2020 6:01 PM [facility]
--- NOTE | 2020-09-07 18:04 | RAD ---
EXAM DESCRIPTION: Hip,Right 2 Views CLINICAL HISTORY: PAIN IN RIGHT HIP COMPARISON: None. TECHNIQUE: 2 views right FINDINGS: Surgical clips are observed below the right hip. The hip and acetabulum appear normal. No fracture or significant degenerative arthritis are observed. The sacroiliac joint on the right is normal in appearance. There is evidence of a lower lumbar laminectomy. IMPRESSION: Normal right hip. Electronically signed by: Gabe Robles MD 09/07/2020 6:02 PM [facility]
== END ==
LOC: RAD 13:20
PROVIDERS: ATTEND Internal Medicine
DX: M25.551 Pain in right hip (principal)

== ENCOUNTER 2020-09-08 09:04 | Emergency (ER) | payer MEDICARE ==
[2020-09-08] MEDS ORDERED: SODIUM CHLORIDE 0.9% 1000ML 1,000 ML IVS ONE ×2 (09:52→11:40)
--- NOTE | 2020-09-08 09:56 | CT ---
EXAM DESCRIPTION: CT head without contrast CLINICAL HISTORY: falls, syncope, on eliquis COMPARISON: Previous CT head February 06, 2011 TECHNIQUE: Noncontrast head CT was performed with routine protocol. FINDINGS: Normal carson-white matter differentiation. Ventricles and sulci are prominent consistent with age-related cerebral volume loss. Large ventricles are increased in size compared to previous study in January 2011. Large ventricles may be due to generalized atrophy or could be related to normal pressure hydrocephalus or obstructive hydrocephalus. Clinical correlation recommended as to whether hydrocephalus protocol MRI should be performed. No high density hemorrhage, focal edema or shift of the midline. No sulcal effacement. Normal orbital contents. Basilar cisterns appear clear. Intact calvarium with no fracture or lytic lesion. Normal aeration of tympanic cavities and mastoid air cells. No fluid levels in the paranasal sinuses. Skull base appears intact. Symmetrical internal auditory canals. IMPRESSION: Senescent brain with prominent ventricles. Negative for evidence of intracranial hemorrhage. This exam was performed according to our departmental dose-optimization program, which includes automated exposure control, adjustment of the mA and/or kV according to patient size and/or use of iterative reconstruction technique. Total DLP equals 752.48 mGycm. Electronically signed by: Teodoro Boston MD 09/08/2020 9:55 AM [employer]
--- NOTE | 2020-09-08 10:16 | CT ---
EXAM DESCRIPTION: CT Abdoment and Pelvis w/o Contrast CLINICAL HISTORY: 65 years, Male, vague abd pain, sacral pain from fall COMPARISON: Previous CT abdomen and pelvis February 19, 2013 TECHNIQUE: CT of the abdomen and pelvis is performed according to our non contrast protocol. FINDINGS: Patchy infiltrates in the lower lobes of the lungs with groundglass density. Hiatal hernia is large behind the heart. Sternotomy wires are present anteriorly. Heart size is normal. Liver, spleen, and pancreas are unremarkable. Gallbladder is surgically absent. Adrenal glands appear normal. The right kidney shows cortical thinning posteriorly consistent with focal scarring and lobulated appearance superomedially which could be small mass or hemorrhagic cyst with a density of 34 Hounsfield units measuring 1.4 cm in size. Compared to previous CT of the abdomen and pelvis March 21, 2013, a cyst was seen in this area which measured 1.2 cm at that time. Renal sonography may be helpful. The left kidney contains a cyst. The left kidney is otherwise unremarkable. No renal stones or hydronephrosis. Small bowel loops appear normal in caliber with normal wall thickness. In the pelvis, the appendix is not seen and may be surgically absent. Surgical scarring in the anterior abdominal wall with thinning. No inflammation around the cecum or terminal ileum or sigmoid colon. Bowel anastomotic staple line in the sigmoid region. No stones in the distal ureters or bladder. Rectal wall thickness is normal for degree of distention. No free fluid or mass in the pelvis. Prostate appears prominent measuring 4.7 cm in transverse dimension. High density in the right gluteus lani muscle consistent with hematoma measuring approximately 6.3 x 4.4 cm. This appears thickened compared to the contralateral side. Clinical follow-up recommended to ensure resolution. No inguinal or lower pelvic adenopathy. Coronal and sagittal reformatted images confirm the findings. No fractures of the lumbar spine or bones of the pelvic ring. Moderate to large amount of fecal material in the rectal region. Degenerative changes in the thoracolumbar spine with no acute-appearing compressions. IMPRESSION: CT findings consistent with hematoma of the right gluteus lani muscle. Groundglass infiltrates in the lower lungs consistent with pneumonia. Indeterminate medial upper right renal lesion probably hemorrhagic cyst. Otherwise no evidence of acute process in the abdomen or pelvis. This exam was performed according to our departmental dose-optimization program, which includes automated exposure control, adjustment of the mA and/or kV according to patient size and/or use of iterative reconstruction technique. Total DLP equals 1296.96 mGycm. Electronically signed by: Teodoro Boston MD 09/08/2020 10:15 AM [facility]
--- NOTE | 2020-09-08 10:23 | RAD ---
EXAM DESCRIPTION: Chest,1 View CLINICAL HISTORY: recurrent falls COMPARISON: July 29, 2020. IMPRESSION: Single AP portable upright view of the chest shows cardiac silhouette and pulmonary vasculature to be within normal limits. Postsurgical changes from sternotomy. Lungs are normally aerated with mild interstitial thickening in the right mid to lower chest improved but not completely resolved from previous exam. No new infiltrates are seen.. No obvious pleural effusion or pneumothorax is seen. Electronically signed by: González Frederick MD 09/08/2020 10:22 AM [facility]
--- NOTE | 2020-09-08 10:32 | RAD ---
EXAM DESCRIPTION: Femur,Right: CR/DR/XR CLINICAL HISTORY: 65 years Male fall, mild pain COMPARISON: None. TECHNIQUE: 4 views AP. Lateral. Upper and lower right femur. FINDINGS: Medications bone density. No fracture or dislocation. No abnormal radiodense objects in the soft tissues. Soft tissue clips indicating vascular surgery in the right groin region. Marginal spurs on the patella. Calcification of the distal patellar tendon at the tibial tuberosity. No soft tissue swelling. No radiodense loose bodies. IMPRESSION: Decreased bone density in the right femur but no acute bony abnormality. Electronically signed by: Daniel De Dios MD 09/08/2020 10:31 AM [facility]
--- NOTE | 2020-09-08 11:54 | ED.PDOC ---
History of Present Illness - General Chief Complaint: Syncope/Near Syncope Stated Complaint: dizziness, low BP, fast HR Time Seen by Provider: 09/08/20 09:17 Source: patient Exam Limitations: no limitations - History of Present Illness Initial Comments: Patient is a 65-year-old male presenting from the long-term care facility secondary to recurrent falls and some dizziness with standing over the last week. He has apparently fallen 4 times. He thinks he may have passed out once and might of hit his head. He does take Eliquis. No real altered mental status currently. No significant headache. He has vague diffuse abdominal discomfort and he has pain more towards the right buttock. He is able to move all his extremities well. The patient is tilt positive here today by blood pressure. He has mildly tachycardic. He does have a mild bruise to the right buttock area. Normal passive and active range of motion of his extremities given his chronic limitations. He is pleasant and cooperative currently in no acute distress. Timing/Duration: 1 week Severity: moderate Improving Factors: nothing Worsening Factors: movement Associated Symptoms: malaise, weakness - Generalized Allergies/Adverse Reactions: Allergies Cephalexin [From Keflex] Allergy (Verified 07/24/20 11:13) Chicken Allergy Allergy (Verified 07/24/20 11:34) Pork Allergy Allergy (Verified 07/24/20 11:34) Home Medications: Ambulatory Orders Acetaminophen [Tylenol] 500 mg PO Q4H PRN 07/24/20 Benztropine Mesylate 1 mg PO BID 07/24/20 Desvenlafaxine [Desvenlafaxine ER] 50 mg PO DAILY 07/24/20 Digoxin [Digox] 125 mcg PO DAILY 07/24/20 Donepezil HCl [Aricept] 5 mg PO DAILY 07/24/20 Famotidine 40 mg PO BID 07/24/20 Melatonin 10 mg PO BEDTIME 07/24/20 Olanzapine 15 mg PO BEDTIME 07/24/20 Pravastatin Sodium 40 mg PO BEDTIME 07/24/20 Prednisone 10 mg PO DAILY 07/24/20 Ropinirole Hydrochloride [Ropinirole HCl] 1 mg PO BID 07/24/20 levoFLOXacin [Levaquin] 500 mg PO DAILY 07/24/20 Apixaban [Eliquis] 5 mg PO BID 07/27/20 Albuterol Inhaler [Ventolin Hfa Inhaler] 2 puff INH PRN PRN inh 07/29/20 Albuterol Inhaler [Ventolin Hfa Inhaler] 2 puff INH RTQID inh 07/29/20 Azithromycin Tab [Zithromax Tab] 250 mg PO QD #4 tab 07/29/20 Bifidobacterium Infantis [Align] 4 mg PO DAILY cap 07/29/20 Dexamethasone Tab [Decadron Tab] 4 mg PO DAILY #8 tab 07/29/20 Amoxicillin & Pot Clavulanate [Augmentin Tab] 875 mg PO BID #10 tab 09/08/20 Review of Systems - Review of Systems Constitutional: States: malaise, weakness - Generalized EENTM: States: no symptoms reported Respiratory: States: no symptoms reported Cardiology: States: no symptoms reported Gastrointestinal/Abdominal: States: no symptoms reported Genitourinary: States: no symptoms reported Musculoskeletal: States: see HPI Skin: States: see HPI Neurological: States: other - Dizziness Endocrine: States: no symptoms reported Hematologic/Lymphatic: States: no symptoms reported All other Systems: No Change from Baseline Past Medical History (General) - Patient Medical History Hx Seizures: No Hx Stroke: No Hx Dementia: Yes Hx Asthma: No Hx of COPD: No Hx Cardiac Disorders: Yes Hx Congestive Heart Failure: No Hx Pacemaker: No Hx Hypertension: No Hx Diabetes: No Hx Gastroesophageal Reflux: Yes Hx Renal Disease: No Hx Cancer: No Hx of HIV: No Hx Hepatitis C: No Hx MRSA: No - Vaccination History Hx Tetanus, Diphtheria Vaccination: Yes Hx Influenza Vaccination: Yes Hx Pneumococcal Vaccination: Yes - Social History Hx Tobacco Use: No Hx Alcohol Use: No Hx Substance Use: No Hx Substance Use Treatment: No Hx Depression: No Hx Physical Abuse: No Hx Emotional Abuse: No - Activities of Daily Living Shelter/Assisted Living (if applicable):: [facility] Agency (if applicable):: None - Female History Patient is a Female of Child Bearing Age (10 -59 yrs old): No Family Medical History - Family History Mother Family History: Unknown Living Status: Unknown Physical Exam - Physical Exam General Appearance: Alert, Comfortable, No apparent distress Eye Exam: bilateral normal Ears, Nose, Throat: hearing grossly normal, normal pharynx, other - He does have moderate cerumen in bilateral ear canals but no true impaction. Neck: non-tender, full range of motion, supple Respiratory: lungs clear, normal breath sounds, no respiratory distress, no accessory muscle use Cardiovascular/Chest: regular rate, rhythm, tachycardia Peripheral Pulses: radial,right: 2+, radial,left: 2+ Gastrointestinal/Abdominal: soft, other - Vague discomfort to palpation. Surgi juancho changes noted. Rectal Exam: deferred Back Exam: no vertebral tenderness, other - Mild bruising to the right buttock area. 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, alert, normal mood/affect, oriented x 3 Skin Exam: other - See above Comments: Vital Signs - 24 hr 09/08/20 09/08/20 09/08/20 09:16 09:25 09:27 Temperature 98.0 F Pulse Rate [ 113 H 112 H pulse ox] Respiratory 18 119 H Rate Blood Pressure 116/92 99/68 90/50 [Left Arm] O2 Sat by Pulse 100 Oximetry 09/08/20 09/08/20 09/08/20 09:29 10:04 11:05 Temperature 98.0 F Pulse Rate [ 123 H 101 H 107 H pulse ox] Respiratory 18 16 Rate Blood Pressure 84/63 113/87 113/87 [Left Arm] O2 Sat by Pulse 100 97 Oximetry Progress - Progress Progress: 09/08/20 11:56 The patient is a 65-year-old male presented emergency room after multiple falls this past week. The patient is significantly orthostatic at this point and does appear to be dehydrated based on the laboratory work. He did receive 2 L of IV fluids here today which did help the blood pressure. He does not have any medications on board directly targeting high blood pressure that could be discontinued. He does have multiple medications treating other chronic processes that may be lowering his blood pressure however. If the patient experiences a recurrence of low blood pressures while standing i.e. orthostasis, even while he is well-hydrated then there may need to be a discussion of finding alternative medications that do not have the side effect. The patient is at increased fall risk with the orthostasis. To that end he may benefit from phy sical therapy to prevent further falls. It would also be well advised to try and have the patient get down at least to 2 L of water a day to prevent further dehydration episodes. The patient does have a 6 cm by 4 cm right gluteal hematoma. The patient does take Eliquis. He is to discontinue the Eliquis for 5 days in order to make sure there is no continued bleeding into that site. He will likely be able to resume the medication after that timeframe. His hemoglobin levels are low normal but consistent with his previous levels. The patient does have some persistent bilateral lower lobe infiltrates likely, residual from the coronavirus pneumonia. I am going to place the patient on Augmentin for 5 days only to make sure he is not developing a superimposed bacterial pneumonia within the residual debris. He is not hypoxic. He is not really having pulmonary symptoms at this time. I do want him to follow-up with his primary care doctor within the coming week. He does need to get around with assistance only. ER warnings are given. clyde torres [phone] - Results/Orders Results/Orders: 09/08/20 09:30 EKG STAT shows sinus tachycardia with PACs at 110 bpm. Normal axis. Right bundle branch block. Normal R wave progression. Borderline LVH criteria. No definitive ST segment or T wave changes indicative of acute ischemia. There is mild corresponding prolonged QT interval. Chest x-ray shows some mild persistent lower lobe interstitial changes. He did have coronavirus a month ago. This is consistent with a CT scan of the abdomen pelvis as well. CT scan abdomen pelvis without contrast shows the lung pandya as above. He has a 6 x 4 cm right gluteal hematoma. He has a medial upper right renal cyst probably hemorrhagic cyst. Renal ultrasound is recommended at a later date. No fractures are noted. He has a large hiatal hernia. He has constipation. Head CT shows increased ventricular size likely due to atrophy but cannot rule out other etiologies. X-ray of the right femur shows no acute pathology. 09/08/20 11:40 Sodium Chloride 0.9% 1000ML [Ns 1000 ml] 1,000 ml IVS ONCE Laboratory Results - last 24 hr 09/08/20 09/08/20 09/08/20 09:30 09:30 09:30 WBC 6.0 RBC 3.47 L Hgb 9.5 L Hct 28.6 L MCV 82.5 MCH 27.3 MCHC 33.1 RDW 22.1 H Plt Count 311 MPV 6.9 L Absolute Neuts (auto) 4.10 Absolute Lymphs (auto) 1.20 Absolute Monos (auto) 0.50 Absolute Eos (auto) 0.10 Absolute Basos (auto) 0.10 Neutrophils % 68.3 Lymphocytes % 20.7 Monocytes % 8.7 Eosinophils % 1.3 Basophils % 1.0 PT 11.5 H INR 1.16 H PTT (SP) 33.1 H Sodium 140 Potassium 4.0 Chloride 103 Carbon Dioxide 24 Anion Gap 17.0 BUN 23 H Creatinine 1.17 BUN/Creatinine Ratio 19.7 Random Glucose 106 H Serum Osmolality 283.5 Lactic Acid Calcium 9.2 Magnesium 2.2 Total Bilirubin 0.8 AST 16 ALT 17 Alkaline Phosphatase 124 H Creatine Kinase 58 CK-MB (CK-2) 1.2 CK-MB (CK-2) % Not Reportable Troponin I < 0.02 B-Natriuretic Peptide 80.5 Serum Total Protein 7.6 Albumin 4.0 Globulin 3.6 H Albumin/Globulin Ratio 1.1 Amylase 33 Lipase 21 L TSH 1.17 Urine Color Urine Appearance Urine pH Ur Specific Kiefer Urine Protein Urine Glucose (UA) Urine Ketones Urine Blood Urine Nitrite Urine Bilirubin Urine Urobilinogen Ur Leukocyte Esterase Urine RBC Urine WBC Ur Epithelial Cells Amorphous Sediment Urine Bacteria Urine Mucus Digoxin 09/08/20 09/08/20 09/08/20 09:30 10:00 10:55 WBC RBC Hgb Hct MCV MCH MCHC RDW Plt Count MPV Absolute Neuts (auto) Absolute Lymphs (auto) Absolute Monos (auto) Absolute Eos (auto) Absolute Basos (auto) Neutrophils % Lymphocytes % Monocytes % Eosinophils % Basophils % PT INR PTT (SP) Sodium Potassium Chloride Carbon Dioxide Anion Gap BUN Creatinine BUN/Creatinine Ratio Random Glucose Serum Osmolality Lactic Acid 1.9 Calcium Magnesium Total Bilirubin AST ALT Alkaline Phosphatase Creatine Kinase CK-MB (CK-2) CK-MB (CK-2) % Troponin I B-Natriuretic Peptide Serum Total Protein Albumin Globulin Albumin/Globulin Ratio Amylase Lipase TSH Urine Color Yellow Urine Appearance Clear Urine pH 6.0 Ur Specific Kiefer 1.020 Urine Protein Negative Urine Glucose (UA) Negative Urine Ketones Negative Urine Blood Negative Urine Nitrite Negative Urine Bilirubin Negative Urine Urobilinogen 0.2 Ur Leukocyte Esterase Negative Urine RBC 0 Urine WBC 0-1 Ur Epithelial Cells 1-3 Amorphous Sediment 1+ Urine Bacteria Rare Urine Mucus Moderate Digoxin 1.0 Departure - Departure Clinical Impression: Orthostasis, Dehydration, Hematoma Fall at snf Qualifiers: Encounter type: initial encounter Qualified Code(s): W19.XXXA - Unspecified fall, initial encounter; Y92.129 - Unspecified place in snf as the place of occurrence of the external cause Disposition: Discharge to SNF Condition: Fair Departure Forms: ED Discharge - Pt. Copy, Patient Portal Self Enrollment Instructions: Preventing Falls, Contusion (DC) Diet: regular diet Activity: increase activity as tolerated Referrals: MARTHA BRINK [Primary Care Provider] - 1-5 Days Prescriptions: Amoxicillin & Pot Clavulanate [Augmentin Tab] 875 mg PO BID #10 tab Home Medications: Ambulatory Orders Acetaminophen [Tylenol] 500 mg PO Q4H PRN 07/24/20 Benztropine Mesylate 1 mg PO BID 07/24/20 Desvenlafaxine [Desvenlafaxine ER] 50 mg PO DAILY 07/24/20 Digoxin [Digox] 125 mcg PO DAILY 07/24/20 Donepezil HCl [Aricept] 5 mg PO DAILY 07/24/20 Famotidine 40 mg PO BID 07/24/20 Melatonin 10 mg PO BEDTIME 07/24/20 Olanzapine 15 mg PO BEDTIME 07/24/20 Pravastatin Sodium 40 mg PO BEDTIME 07/24/20 Prednisone 10 mg PO DAILY 07/24/20 Ropinirole Hydrochloride [Ropinirole HCl] 1 mg PO BID 07/24/20 levoFLOXacin [Levaquin] 500 mg PO DAILY 07/24/20 Apixaban [Eliquis] 5 mg PO BID 07/27/20 Albuterol Inhaler [Ventolin Hfa Inhaler] 2 puff INH PRN PRN inh 07/29/20 Albuterol Inhaler [Ventolin Hfa Inhaler] 2 puff INH RTQID inh 07/29/20 Azithromycin Tab [Zithromax Tab] 250 mg PO QD #4 tab 07/29/20 Bifidobacterium Infantis [Align] 4 mg PO DAILY cap 07/29/20 Dexamethasone Tab [Decadron Tab] 4 mg PO DAILY #8 tab 07/29/20 Amoxicillin & Pot Clavulanate [Augmentin Tab] 875 mg PO BID #10 tab 09/08/20 Additional Instructions: The patient is a 65-year-old male presented emergency room after multiple falls this past week. The patient is significantly orthostatic at this point and does appear to be dehydrated based on the laboratory work. He did receive 2 L of IV fluids here today which did help the blood pressure. He does not have any medications on board directly targeting high blood pressure that could be discontinued. He does have multiple medications treating other chronic processes that may be lowering his blood pressure however. If the patient experiences a recurrence of low blood pressures while standing i.e. orthostasis, even while he is well-hydrated then there may need to be a discussion of finding alternative medications that do not have the side effect. The patient is at increased fall risk with the orthostasis. To that end he may benefit from physical therapy to prevent further falls. It would also be well advised to try and have the patient get down at least to 2 L of water a day to prevent further dehydration episodes. The patient does have a 6 cm by 4 cm right gluteal hem atoma. The patient does take Eliquis. He is to discontinue the Eliquis for 5 days in order to make sure there is no continued bleeding into that site. He will likely be able to resume the medication after that timeframe. His hemoglobin levels are low normal but consistent with his previous levels. The patient does have some persistent bilateral lower lobe infiltrates likely, residual from the coronavirus pneumonia. I am going to place the patient on Augmentin for 5 days only to make sure he is not developing a superimposed bacterial pneumonia within the residual debris. He is not hypoxic. He is not really having pulmonary symptoms at this time. I do want him to follow-up with his primary care doctor within the coming week. He does need to get around with assistance only. ER warnings are given.
[2020-09-08 13:16] VITALS: TEMP 98.2
[2020-09-08 13:30] VITALS: BP 127/94; O2SAT 96
== END 2020-09-08 13:25 ==
LOC: ER 09:04
DX: E86.0 Dehydration (principal); I95.1 Orthostatic hypotension; S30.0XXA Contusion of lower back and pelvis, initial encounter; R55 Syncope and collapse; R00.0 Tachycardia, unspecified; I49.1 Atrial premature depolarization; I45.10 Unspecified right bundle-branch block; F03.90 Unspecified dementia, unspecified severity, without behavioral disturbance, psychotic disturbance, mood disturbance, and anxiety; K21.9 Gastro-esophageal reflux disease without esophagitis; I51.9 Heart disease, unspecified; R29.6 Repeated falls; Z86.19 Personal history of other infectious and parasitic diseases; Z87.01 Personal history of pneumonia (recurrent); Z79.899 Other long term (current) drug therapy; Z79.01 Long term (current) use of anticoagulants; Z88.1 Allergy status to other antibiotic agents; W19.XXXA Unspecified fall, initial encounter; Y92.129 Unspecified place in nursing home as the place of occurrence of the external cause
CPT/HCPCS: 70450; 71045; 73551; 74176; 80053; 80162; 81001; 82150; 82550; 82553; 83605; 83690; 83735; 83880; 84443; 84484; 85025; 85610; 85730; 93005; J7030